=== PATIENT | female | born 1995 | race Caucasian/White ===

== ENCOUNTER 2020-07-07 06:22 | Inpatient (IN) | payer OTHER ==
[2020-07-07] MEDS: LACTATED RINGERS SOLUTION 1,000 ML IV SCH ×2 (07:00→15:12)
[2020-07-07 07:49] VITALS: BMI 53.1
[2020-07-07] MEDS ORDERED: OXYTOCIN 30 UNITS in 0.9% NS 30 UNIT/500 ML INFUS.BAG IVPB ONE (08:16)
[2020-07-07] MEDS ORDERED: OXYTOCIN 20 UNITS in 0.9% NS 20 UNIT/1,000 ML INFUS.BAG IV ONE ×2 (08:16→19:38)
[2020-07-07] MEDS ORDERED: OXYTOCIN 30 UNITS in 0.9% NS 30 UNIT/500 ML INFUS.BAG IVPB SCH (08:20)
[2020-07-07 09:45] LABS: ACTIVATED PTT 27.8 SECONDS (25.2-36.5); BASO % 0.7 % (0-2.0); HEMATOCRIT 33.1 % (32.4-45.2); HEMOGLOBIN 11.2 GM/dL (10.7-15.3); INR 0.94 (0.83-1.09); LYMPH % 23.1 % (8-40); MCH 27.7 pg (25.7-33.7); MCHC 33.9 g/dl (32.0-36.0); MEAN CELL VOLUME 81.6 fl (80-96); MEAN PLT VOLUME 9.4 fl (7.5-11.1); NEUT % 69.2 % (42.8-82.8); PLATELET COUNT 205 K/MM3 (134-434); PROTHROMBIN TIME (PATIENT) 11.4 SEC (9.7-13.0); RBC 4.05 M/mm3 (3.60-5.2); RDW 14.7 % (11.6-15.6); WHITE BLOOD COUNT 10.7 K/mm3 (4.0-10.0)
[2020-07-07 09:50] LABS: POTASSIUM 4.1 mmol/L (3.5-5.1)
[2020-07-07 09:52] LABS: ALBUMIN 2.5 g/dl (3.4-5.0); BLOOD UREA NITROGEN 11.7 mg/dL (7-18); CALCIUM 9.2 mg/dL (8.5-10.1)
[2020-07-07 09:55] LABS: CREATININE 0.7 mg/dL (0.55-1.3); URIC ACID 5.7 mg/dL (2.6-7.2)
[2020-07-07] MEDS: OXYTOCIN 30 UNITS in 0.9% NS 30 UNIT/500 ML INFUS.BAG IVPB SCH ×2 (09:55→11:40)
[2020-07-07 09:57] LABS: BILIRUBIN,TOTAL 0.2 mg/dL (0.2-1); TOT PROT 6.3 g/dl (6.4-8.2)
[2020-07-07] MEDS ORDERED: ACETAMINOPHEN 325 MG TABLET (FP) ONE (09:58)
[2020-07-07] MEDS ORDERED: ACETAMINOPHEN 325 MG TABLET (FP) PO ONE (10:00)
[2020-07-07] MEDS ORDERED: PCA PUMP NR ONE (15:00)
[2020-07-07] MEDS ORDERED: FENTANYL/BUPIVACAINE/NS/PF - PCEA - 50 ML DISP.SYRIN EP ONE (15:01)
[2020-07-07] MEDS ORDERED: BUPIVACAINE HCL/PF 0.25% (2.5MG/ML) 10 ML VIAL ONE ×2 (15:22→16:49)
[2020-07-07] MEDS: FENTANYL/BUPIVACAINE/NS/PF - PCEA - 50 ML DISP.SYRIN EP SCH (15:35)
[2020-07-07] MEDS ORDERED: NALOXONE HCL 0.4 MG/ML VIAL IVPUSH PRN (15:49)
[2020-07-07] MEDS ORDERED: BISACODYL 10 MG SUPP.RECT RC PRN (18:54)
[2020-07-07] MEDS ORDERED: WITCH HAZEL 50% (TUCKS) 40 PAD/JAR PAD TP PRN (18:54)
[2020-07-07] MEDS ORDERED: BENZOCAINE 28 GM HEMORRHOIDAL OINTMENT TP PRN (18:54)
[2020-07-07] MEDS ORDERED: METHYLERGONOVINE MALEATE 0.2 MG/1 ML AMP IM PRN (18:54)
[2020-07-07] MEDS ORDERED: BENZOCAINE 20% 57 GM BOTTLE TP PRN (18:54)
[2020-07-07] MEDS: IBUPROFEN 600 MG TABLET (FP) PO PRN (20:51)
[2020-07-07] MEDS: ACETAMINOPHEN 325 MG TABLET (FP) PO PRN (20:51)
[2020-07-08 09:39] LABS: BASO % 0.5 % (0-2.0); EOS % 0.9 % (0-4.5); HEMATOCRIT 35.1 % (32.4-45.2); HEMOGLOBIN 11.9 GM/dL (10.7-15.3); LYMPH % 23.7 % (8-40); MCH 27.9 pg (25.7-33.7); MEAN CELL VOLUME 82.1 fl (80-96); MONO % 5.3 % (3.8-10.2); NEUT % 69.6 % (42.8-82.8); PLATELET COUNT 231 K/MM3 (134-434); RBC 4.27 M/mm3 (3.60-5.2); RDW 14.8 % (11.6-15.6); WHITE BLOOD COUNT 13.5 K/mm3 (4.0-10.0)
[2020-07-08] MEDS: ACETAMINOPHEN 325 MG TABLET (FP) PO PRN (11:25)
[2020-07-08] MEDS: IBUPROFEN 600 MG TABLET (FP) PO PRN ×2 (11:25→20:18)
[2020-07-08] MEDS ORDERED: SENNOSIDES/DOCUSATE COMBO (SENNA PLUS) TABLET (UD) PO PRN (22:00)
[2020-07-09] MEDS: ACETAMINOPHEN 325 MG TABLET (FP) PO PRN ×2 (01:57→10:19)
[2020-07-09] MEDS: IBUPROFEN 600 MG TABLET (FP) PO PRN ×2 (01:58→10:19)
[2020-07-09] MEDS: FENTANYL/BUPIVACAINE/NS/PF - PCEA - 50 ML DISP.SYRIN EP SCH (07:10)
[2020-07-09 10:42] VITALS: BP 132/79; PULSE 86; TEMP 97.9
== END 2020-07-09 12:30 | disposition home or self-care (01) | DRG 560 ==
LOC: JLDR 06:22 → J3W 20:35
PROVIDERS: ADMIT Specialist; ATTEND Specialist
PROC: 0HQ9XZZ Repair Perineum Skin, External Approach (ICD-10-PCS; principal; 2020-07-07)
PROC: 10E0XZZ Delivery of Products of Conception, External Approach (ICD-10-PCS; 2020-07-07)
DX: O70.0 First degree perineal laceration during delivery (principal); Z3A.39 39 weeks gestation of pregnancy; Z37.0 Single live birth
CPT/HCPCS: 36415; 59409; 80053; 84550; 85025; 85610; 85730; 86780; 86850; 86900; 86901

== ENCOUNTER 2024-12-26 12:01 | Inpatient (IN) | payer OTHER ==
[2024-12-26] MEDS: ELECTROLYTE-148 SOLN 500 ML IV ONE (13:00)
[2024-12-26 13:05] VITALS: BMI 46.9
[2024-12-26 13:08] LABS: ABSOLUTE IMMATURE GRANULOCYTES 0.03 x10^3/uL (0.0-0.031); BASOPHILS # 0.03 x10^3/uL (0.01-0.08); EOSINOPHIL % 0.6 % (0.7-5.8); EOSINOPHILS # 0.06 x10^3/uL (0.04-0.36); MCHC 32.8 g/dl (32.2-35.5); MEAN CELL VOLUME 84.6 fl (79.4-94.8); MEAN PLT VOLUME 11.4 fl (9.4-12.3); MONOCYTE # 0.55 x10^3/uL (0.24-0.86); MONOCYTE % 5.8 % (4.7-12.5); RDW 13.9 % (12.1-16.8)
[2024-12-26 13:15] LABS: INR 0.92 (0.83-1.09); PROTHROMBIN TIME (PATIENT) 10.0 SEC (9.7-13.0)
[2024-12-26 13:18] LABS: ACTIVATED PTT 26.2 SECONDS (25.2-36.5)
[2024-12-26 13:34] LABS: GLUCOSE,RANDOM 72.0 mg/dL (74-106)
[2024-12-26 13:40] LABS: CREATININE 0.58 mg/dL (0.55-1.3)
[2024-12-26] MEDS: ELECTROLYTE-148 SOLN 1,000 ML IV SCH (14:00)
[2024-12-26 14:02] LABS: CO2 21.0 mmol/L (21-32)
[2024-12-26] MEDS ORDERED: OXYTOCIN 30 UNITS in 0.9% NS 30 UNIT/500 ML INFUS.BAG IVPB ONE (14:19)
[2024-12-26] MEDS: OXYTOCIN 30 UNITS in 0.9% NS 30 UNIT/500 ML INFUS.BAG IVPB SCH (14:58)
[2024-12-26] MEDS ORDERED: AMPICILLIN SODIUM 2 GM VIAL ONE (17:18)
[2024-12-26] MEDS: AMPICILLIN - 2 GM in SODIUM CHLORIDE 100 ML IVPB ONE (17:20)
[2024-12-26] MEDS ORDERED: AMPICILLIN SODIUM 1 GM VIAL ONE (20:25)
[2024-12-26] MEDS: AMPICILLIN - 1 GM in SODIUM CHLORIDE 100 ML IVPB SCH (21:04)
[2024-12-26] MEDS ORDERED: FENTANYL/BUPIVACAINE/NS/PF - PCEA - 50 ML DISP.SYRIN EP ONE (21:35)
[2024-12-26] MEDS ORDERED: NALOXONE HCL 0.4 MG/ML VIAL IVPUSH PRN (21:58)
[2024-12-26] MEDS: FENTANYL/BUPIVACAINE/NS/PF - PCEA - 50 ML DISP.SYRIN EP SCH (22:00)
[2024-12-26] MEDS ORDERED: OXYTOCIN 20 UNITS in 0.9% NS 20 UNIT/1,000 ML INFUS.BAG IV ONE (23:08)
[2024-12-26] MEDS: OXYTOCIN 20 UNITS in 0.9% NS 20 UNIT/1,000 ML INFUS.BAG IV SCH (23:32)
[2024-12-26] MEDS ORDERED: BISACODYL 10 MG SUPP.RECT RC PRN (23:41)
[2024-12-26] MEDS ORDERED: BENZOCAINE 20% 57 GM BOTTLE TP PRN (23:41)
[2024-12-26] MEDS ORDERED: WITCH HAZEL 50% (TUCKS) 40 PAD/JAR PAD TP PRN (23:41)
[2024-12-26] MEDS ORDERED: ACETAMINOPHEN 325 MG TABLET (FP) PO PRN (23:41)
[2024-12-26] MEDS ORDERED: METHYLERGONOVINE MALEATE 0.2 MG/1 ML AMP IM PRN (23:41)
[2024-12-26] MEDS ORDERED: BENZOCAINE 28 GM HEMORRHOIDAL OINTMENT TP PRN (23:41)
[2024-12-27 02:06] VITALS: RESP 18
[2024-12-27] MEDS: IBUPROFEN 600 MG TABLET (FP) PO PRN (08:02)
[2024-12-27 08:22] LABS: ABSOLUTE IMMATURE GRANULOCYTES 0.03 x10^3/uL (0.0-0.031); BASOPHILS # 0.04 x10^3/uL (0.01-0.08); EOSINOPHIL % 0.5 % (0.7-5.8); EOSINOPHILS # 0.06 x10^3/uL (0.04-0.36); MCHC 32.1 g/dl (32.2-35.5); MEAN CELL VOLUME 85.6 fl (79.4-94.8); MEAN PLT VOLUME 12.3 fl (9.4-12.3); MONOCYTE # 0.77 x10^3/uL (0.24-0.86); MONOCYTE % 6.3 % (4.7-12.5); RDW 14.2 % (12.1-16.8)
[2024-12-27] MEDS ORDERED: SENNOSIDES/DOCUSATE COMBO (SENNA PLUS) TABLET (UD) PO PRN (22:00)
[2024-12-28 00:37] VITALS: TEMP 97.8
[2024-12-28 12:38] VITALS: BP 133/85; PULSE 78
[2024-12-28 14:03] LABS: ABSOLUTE IMMATURE GRANULOCYTES 0.03 x10^3/uL (0.0-0.031); BASOPHILS # 0.05 x10^3/uL (0.01-0.08); EOSINOPHIL % 1.8 % (0.7-5.8); EOSINOPHILS # 0.20 x10^3/uL (0.04-0.36); MCHC 31.7 g/dl (32.2-35.5); MEAN CELL VOLUME 85.8 fl (79.4-94.8); MEAN PLT VOLUME 11.3 fl (9.4-12.3); MONOCYTE # 0.47 x10^3/uL (0.24-0.86); MONOCYTE % 4.1 % (4.7-12.5); RDW 14.3 % (12.1-16.8)
[2024-12-28 14:12] LABS: INR 0.85 (0.83-1.09); PROTHROMBIN TIME (PATIENT) 9.3 SEC (9.7-13.0)
[2024-12-28 14:14] LABS: ACTIVATED PTT 26.0 SECONDS (25.2-36.5)
[2024-12-28 14:28] LABS: GLUCOSE,RANDOM 90.0 mg/dL (74-106); TOT PROT 6.2 g/dl (6.4-8.2)
[2024-12-28 14:29] LABS: CO2 24.0 mmol/L (21-32)
[2024-12-28 14:31] LABS: ALK PHOS 152.0 U/L (40-150)
[2024-12-28 14:33] LABS: SGPT/ALT 22.0 U/L (0-55)
[2024-12-28 14:34] LABS: CREATININE 0.61 mg/dL (0.55-1.3); SGOT/AST 34.0 U/L (5-34)
== END 2024-12-28 17:10 | disposition home or self-care (01) | DRG 560 ==
LOC: JLDR 12:01 → J3W 12-27 01:45
PROVIDERS: ADMIT Specialist; ATTEND Specialist
PROC: 10E0XZZ Delivery of Products of Conception, External Approach (ICD-10-PCS; principal; 2024-12-26)
DX: O99.824 Streptococcus B carrier state complicating childbirth (principal); Z3A.39 39 weeks gestation of pregnancy; Z37.0 Single live birth
CPT/HCPCS: 36415; 59409; 80048; 80053; 84550; 85025; 85610; 85730; 86780; 86850; 86900; 86901